=== PATIENT | male | born 1990 | race African-American/Black ===

== ENCOUNTER 2017-08-31 01:58 | Emergency (ER) | payer SELFPAY ==
[~2017-08-31] VITALS: Ht 182.9 cm; Wt 68.0 kg
[2017-08-31] MEDS ORDERED: ZYPREXA5 MG ORAL (02:00)
[2017-08-31 02:08] VITALS: BP 120/67
[2017-08-31] MEDS ORDERED: Cyclobenzaprine 10mg Tab ORAL ONE (02:30)
--- NOTE | 2017-08-31 02:30 | Emergency Room Report ---
History of Present Illness General Chief Complaint: Pain Source: Patient, EMS Present Illness HPI 27yo M with h/o schizophrenia on olanzapine p/w a few hours of LLE cramping pain circumferentially along L lower leg between knee and ankle, denies trauma, recent travel, swelling, denies cp, sob, hemoptysis, syncope. No alleviating/ exacerbation factors, reports no family history of DVT or PE. Other than olanzapine, is not on any other meds. Allergies: Coded Allergies: No Known Allergies (Unverified , 08/31/17) Patient History Past Medical History: see triage record Reviewed Nursing Documentation: PMH: Agreed; PSxH: Agreed Nursing Documentation-PMH Past Medical History: No History, Except For History Of Psychiatric Problem: Yes - schizophrenia Review of Systems All Other Systems: negative except mentioned in HPI Physical Exam Vital Signs Date Time Temp Pulse Resp B/P (MAP) Pulse Ox O2 Delivery O2 Flow Rate FiO2 08/31/17 01:57 97.8 76 14 120/67 99 Room Air 97.9 Sp02 EP Interpretation: reviewed, normal General Appearance: no apparent distress, alert, non-toxic Head: normocephalic Eyes: bilateral eye normal inspection, bilateral eye PERRL, bilateral eye EOMI ENT: normal ENT inspection, hearing grossly normal, normal pharynx, no angioedema, normal voice, moist mucus membranes Neck: normal inspection, full range of motion, supple, supple/symm/no masses Respiratory: chest non-tender, lungs clear, normal breath sounds, chest symmetrical, palpation of chest normal Cardiovascular #1: normal peripheral pulses, regular rate, rhythm Cardiovascular #2: 2+ radial (R), 2+ radial (L), 2+ dorsalis pedis (R), 2+ dorsalis pedis (L) Gastrointestinal: normal inspection, non tender, soft, no mass, no guarding, no rebound Rectal: deferred Genitourinary: normal inspection, no CVA tenderness Musculoskeletal: back normal, gait/station normal, normal range of motion, non- tender, no calf tenderness, Michael's Sign negative Neurologic: alert, responsive, [employer] advisor III-XII nml as tested, motor strength/tone normal, sensory intact, speech normal Psychiatric: judgement/insight normal, mood/affect normal Skin: normal color, no rash, warm/dry, normal turgor Lymphatic: no adenopathy Medical Decision Making Diagnostic Impression: Primary Impression: Pain ER Course Patient with no risk factors for DVT other than tobacco use, exam is completely normal, negative Homans sign, no edema, no erythema, no palpable cord, no tenderness, no skin changes Will discharge home after given a dose of Flexeril, of note patient's prehospital socks, I suspect he is just seeking temporary usp Last Vital Signs Date Time Temp Pulse Resp B/P (MAP) Pulse Ox O2 Delivery O2 Flow Rate FiO2 08/31/17 01:57 97.8 76 14 120/67 99 Room Air 97.9 Disposition: HOME, SELF-CARE Condition: Stable BIRGIT NAGY M.D August 31, 2017 02:30
[2017-08-31] MEDS ORDERED: CYCLOBENZAPRINE10 MG ORAL (02:31)
[2017-08-31 05:45] VITALS: BP 0/0
== END 2017-08-31 05:45 | disposition home or self-care (01) ==
LOC: EDBD 01:58 → EMR 02:25
DX: M79.605 Pain in left leg (principal); F20.9 Schizophrenia, unspecified
CPT/HCPCS: 99282

== ENCOUNTER 2017-11-21 14:36 | Emergency (ER) | payer SELFPAY ==
[~2017-11-21] VITALS: Ht 175.3 cm; Wt 68.0 kg
[~2017-11-21 14:36] MED LIST: CYCLOBENZAPRINE10 MG ORAL; ZYPREXA5 MG ORAL
[2017-11-21 14:50] VITALS: BP 122/74
--- NOTE | 2017-11-21 14:52 | Emergency Room Report ---
History of Present Illness General Source: Patient, EMS Present Illness HPI The patient was at a [facility]. He was unresponsive. When paramedics started assessing him he woke up and admitted to drinking alcohol. He states he drank one fifth of vodka. He also started claiming he is [employer]. He denies suicidal or homicidal ideation. The patient is arousable but does not answer most questions. He denies pain. Allergies: Coded Allergies: No Known Allergies (Unverified , 08/31/17) Patient History Limited by: medical condition Past Medical History: see triage record Social History: Reports: alcohol use Reviewed Nursing Documentation: PMH: Agreed; PSxH: Agreed Review of Systems All Other Systems: limited Physical Exam Vital Signs Date Time Temp Pulse Resp B/P (MAP) Pulse Ox O2 Delivery O2 Flow Rate FiO2 11/21/17 14:48 72 16 122/74 100 11/21/17 14:50 98.0 Room Air 98.0 Sp02 EP Interpretation: reviewed, normal General Appearance: no apparent distress, lethargic - slightly, thin Head: normocephalic, atraumatic Eyes: bilateral eye PERRL, bilateral eye Scleral Injection ENT: moist mucus membranes Neck: supple Respiratory: chest non-tender, lungs clear Cardiovascular #1: regular rate, rhythm Cardiovascular #2: 2+ radial (L) Gastrointestinal: normal inspection, normal bowel sounds, non tender, no mass, non-distended Musculoskeletal: back normal, digits/nails normal, normal range of motion Neurologic: quality auditor III-XII nml as tested, motor strength/tone normal, DTRs symmetric, sensory intact, speech normal, other - ataxic, oriented - 2 Psychiatric: no suicidal/homicidal ideation, depressed affect - lethargic, occasionally with some delusional thoughts, though responds to commands Skin: normal inspection Medical Decision Making Diagnostic Impression: Primary Impression: Acute alcoholic intoxication Qualified Codes: F10.929 - Alcohol use, unspecified with intoxication, unspecified ER Course Patient presents with altered mentation and admitting to alcohol. Differential includes alcohol intoxication, electrolyte imbalance, other drug ingestions, exacerbation of his psychiatric disorder amongst others. The patient will evaluate with labs. Patient be treated with IV hydration and observation. Labs normal except for elevated BA. No urine produced, though ambulated to bathroom. Some histrionic behavior, though responds to requests to calm down. Patient awake and ambulatory. He states he's safe and feels okay to to go home. He states he lives at a house. He denies suicidal or homicidal ideation at this time. Patient stable for outpatient observation and treatment. Laboratory Tests Test 11/21/17 15:00 White Blood Count 4.7 K/UL (4.8-10.8) L Red Blood Count 5.80 M/UL (4.70-6.10) Hemoglobin 13.5 G/DL (14.2-18.0) L Hematocrit 42.4 % (42.0-52.0) Mean Corpuscular Volume 73 FL (80-99) L Mean Corpuscular Hemoglobin 23.3 PG (27.0-31.0) L Mean Corpuscular Hemoglobin Concent 31.9 G/DL (32.0-36.0) L Red Cell Distribution Width 12.2 % (11.6-14.8) Platelet Count 228 K/UL (150-450) Mean Platelet Volume 7.5 FL (6.5-10.1) Neutrophils (%) (Auto) 56.2 % (45.0-75.0) Lymphocytes (%) (Auto) 34.9 % (20.0-45.0) Monocytes (%) (Auto) 6.9 % (1.0-10.0) Eosinophils (%) (Auto) 0.5 % (0.0-3.0) Basophils (%) (Auto) 1.4 % (0.0-2.0) Sodium Level 145 MMOL/L (136-145) Potassium Level 3.5 MMOL/L (3.5-5.1) Chloride Level 110 MMOL/L (98-107) H Carbon Dioxide Level 26 MMOL/L (21-32) Anion Gap 9 mmol/L (5-15) Blood Urea Nitrogen 4 mg/dL (7-18) L Creatinine 0.7 MG/DL (0.55-1.30) Estimate Glomerular Filtration Rate > 60 mL/min (>60) Glucose Level 88 MG/DL (74-106) Calcium Level 8.4 MG/DL (8.5-10.1) L Total Bilirubin 0.3 MG/DL (0.2-1.0) Aspartate Amino Transferase (AST) 28 U/L (15-37) Alanine Aminotransferase (ALT) 27 U/L (12-78) Alkaline Phosphatase 51 U/L (46-116) Total Protein 6.9 G/DL (6.4-8.2) Albumin 3.8 G/DL (3.4-5.0) Globulin 3.1 g/dL Albumin/Globulin Ratio 1.2 (1.0-2.7) Salicylates Level 2.2 ug/mL (2.8-20) L Acetaminophen Level < 2 MCG/ML (10-30) L Serum Alcohol 257 mg/dL Last Vital Signs Date Time Temp Pulse Resp B/P (MAP) Pulse Ox O2 Delivery O2 Flow Rate FiO2 11/21/17 16:30 98.0 72 16 100/57 100 Room Air 98.0 Status: improved Disposition: HOME, SELF-CARE Condition: Improved Phil Robles M.D. Nov 21, 2017 14:52
[2017-11-21 15:29] LABS: BASOPHILS % (AUTO) 1.4 % (0.0-2.0); EOSINOPHILS % (AUTO) 0.5 % (0.0-3.0); HEMATOCRIT 42.4 % (42.0-52.0); HEMOGLOBIN 13.5 G/DL (14.2-18.0); LYMPHOCYTES % (AUTO) 34.9 % (20.0-45.0); MEAN CORPUSCULAR VOLUME 73 FL (80-99); MONOCYTES % (AUTO) 6.9 % (1.0-10.0); NEUTROPHILS % (AUTO) 56.2 % (45.0-75.0); PLATELET COUNT 228 K/UL (150-450); RED CELL DISTRIBUTION WIDTH 12.2 % (11.6-14.8); WHITE BLOOD COUNT 4.7 K/UL (4.8-10.8)
[2017-11-21 15:47] LABS: ANION GAP 9 mmol/L (5-15); BLOOD UREA NITROGEN 4 mg/dL (7-18); CALCIUM 8.4 MG/DL (8.5-10.1); CARBON DIOXIDE 26 MMOL/L (21-32); CHLORIDE 110 MMOL/L (98-107); CREATININE 0.7 MG/DL (0.55-1.30); POTASSIUM 3.5 MMOL/L (3.5-5.1); SODIUM 145 MMOL/L (136-145)
[2017-11-21 15:50] LABS: ALANINE AMINOTRANSFERASE 27 U/L (12-78); ALBUMIN 3.8 G/DL (3.4-5.0); ALBUMIN/GLOBULIN RATIO 1.2 (1.0-2.7); ALKALINE PHOSPHATASE 51 U/L (46-116); ASPARTATE AMINO TRANSFERASE 28 U/L (15-37); BILIRUBIN,TOTAL 0.3 MG/DL (0.2-1.0)
[2017-11-21 16:30] VITALS: BP 100/57
== END 2017-11-21 16:45 | disposition home or self-care (01) ==
LOC: EDBD 14:36 → EMR 15:05
DX: F10.929 Alcohol use, unspecified with intoxication, unspecified (principal)
CPT/HCPCS: 36415; 80053; 85025; 96360; 99284; G0480; 80329